=== PATIENT | male | born 1975 | race Hispanic/Latino ===

== ENCOUNTER 2018-04-27 18:14 | Inpatient (IN) | payer MEDICARE, OTHER ==
[~2018-04-27] VITALS: Ht 172.7 cm; Wt 88.9 kg
[2018-04-27] MEDS ORDERED: PANTOPRAZOLE 40 MG 10ML VIAL IV STA (18:32)
[2018-04-27] MEDS ORDERED: SODIUM CHLORIDE 0.9% 1000ML 1,000 ML IV ONE (19:00)
[2018-04-27 19:21] LABS: BASOPHILS # (AUTO) 0.1 (0.0-0.1); BASOPHILS % 0.9 % (0.0-1.0); EOSINOPHILS # (AUTO) 0.4 (0.0-0.4); EOSINOPHILS % 6.1 % (0.0-6.0); HEMATOCRIT 22.5 % (38.2-49.6); HEMOGLOBIN 7.7 g/dL (14.0-18.0); LYMPHOCYTES # (AUTO) 2.8 (1.0-3.2); LYMPHOCYTES % 40.4 % (18.0-39.1); MEAN CORPUSCULAR HEMOGLOBIN 32.8 pg (28-32); MEAN CORPUSCULAR HGB CONC 34.2 g/dL (31-35); MEAN CORPUSCULAR VOLUME 95.7 fL (81-99); MONOCYTES # (AUTO) 1.1 (0.2-0.8); MONOCYTES % 16.6 % (4.4-11.3); NEUTROPHILS # (AUTO) 2.5 (2.1-6.9); NEUTROPHILS % 35.7 % (38.7-80.0); PLATELET COUNT 137 x10e3/uL (140-360); RED BLOOD COUNT 2.35 x10e6/uL (4.3-5.7); RED CELL DISTRIBUTION WIDTH 20.7 % (11.7-14.4)
[2018-04-27 19:33] LABS: INR 1.59; PROTHROMBIN TIME 20.3 seconds (11.9-14.5)
[2018-04-27 19:34] LABS: PARTIAL THROMBOPLASTIN TIME 48.9 seconds (23.8-35.5)
[2018-04-27 19:41] LABS: CLARITY,URINE CLEAR (CLEAR); COLOR,URINE YELLOW (YELLOW)
[2018-04-27 19:42] LABS: BILIRUBIN,URINE NEGATIVE (NEGATIVE); KETONES,URINE NEGATIVE (NEGATIVE); LEUKOCYTE ESTERASE ,URINE NEGATIVE (NEGATIVE); NITRITE,URINE NEGATIVE (NEGATIVE); PROTEIN,URINE DIPSTICK NEGATIVE (NEGATIVE); URINE UROBILINOGEN 0.2 mg/dL (0.2 - 1)
[2018-04-27 19:44] LABS: ALANINE AMINOTRANSFERASE 15 IU/L (0-55); ALBUMIN 2.4 g/dL (3.5-5.0); ALBUMIN/GLOBULIN RATIO 0.4 (0.8-2.0); ALKALINE PHOSPHATASE 275 IU/L (40-150); ANION GAP 11.7 mmol/L (8-16); BLOOD UREA NITROGEN 9 mg/dL (7-26); BUN/CREATININE RATIO 14 (6-25); CALCIUM 7.4 mg/dL (8.4-10.2); CARBON DIOXIDE 20 mmol/L (22-29); CHLORIDE 109 mmol/L (98-107); CREATINE KINASE 60 IU/L (30-200); CREATININE, SERUM 0.65 mg/dL (0.72-1.25); EST GLOMERULAR FILTRATION RATE > 60 ML/MIN (60-); GLUCOSE 110 mg/dL (74-118); POTASSIUM 3.7 mmol/L (3.5-5.1); SODIUM 137 mmol/L (136-145)
[2018-04-27] MEDS ORDERED: SODIUM CHLORIDE 0.9% 250ML 250 ML IV ONE (19:45)
[2018-04-27 19:55] LABS: BACTERIA,URINE RARE /HPF
[2018-04-27] MEDS ORDERED: SODIUM CHLORIDE 0.9% 1000ML 1,000 ML IV SCH (19:56)
--- NOTE | 2018-04-27 20:14 | Diagnostic Imaging Report ---
A single frontal view of the chest. HISTORY: Vomiting blood, rib pain COMPARISON: None available. DISCUSSION: Portable technique, limits sensitivity of the exam. Soft tissue attenuation partially limits sensitivity of the exam. Overlying artifacts. Tubes/Lines: None Lungs and pleura: Low lung volumes result in bibasilar vascular crowding, accentuation of the pulmonary interstitial markings, central pulmonary vasculature, and the cardiac silhouette. Allowing for these limitations, the findings are as follows: No evidence of a consolidative pneumonia or pulmonary alveolar edema. No definite pleural effusion or pneumothorax is identified. Heart and mediastinum: The cardiomediastinal silhouette appears unremarkable. Bones: No acute osseous lesion is identified, given this limited exam. IMPRESSION: 1. Low lung volumes. 2. Otherwise, no acute radiographic abnormality. Signed by: Dr. Raymond Ware D.O., M.M.M. on 04/27/2018 8:10 PM
[2018-04-27] MEDS: PANTOPRAZOLE INJ 40 MG in SODIUM CHLORIDE 0.9% 50ML 50 ML IV SCH (21:15)
--- NOTE | 2018-04-27 21:19 | Diagnostic Imaging Report ---
EXAM: CT Abdomen and Pelvis WITH contrast INDICATION: July COMPARISON: None. TECHNIQUE: Abdomen and pelvis were scanned utilizing a multidetector helical scanner from the lung base to the pubic symphysis after administration of IV contrast. Coronal and sagittal reformations were obtained. Routine protocol was performed. Scan was performed when during portal venous phase. IV CONTRAST: 100 mL of Isovue-370 ORAL CONTRAST: Water RADIATION DOSE: Total DLP: 722.15 mGy*cm Estimated effective dose: (DLP x 0.015 x size factor) mSv COMPLICATIONS: None FINDINGS: LINES and TUBES: None. LOWER THORAX: There is bibasilar atelectasis. HEPATOBILIARY: The liver is diffuse hypodense compared to the spleen, consistent with diffuse hepatic diffuse hepatic steatosis. There is diffuse micronodularity and contour irregularity of the liver. No biliary ductal dilation. No focal mass visualized GALLBLADDER: No radio-opaque stones or sludge. Diffuse gallbladder wall edema present SPLEEN: Mild splenomegaly. PANCREAS: No focal masses or ductal dilatation. ADRENALS: No adrenal nodules KIDNEYS/URETERS: Kidneys enhance symmetrically. No hydronephrosis. No cystic or solid mass lesions. No stones. GI TRACT: There is mild edema of the small bowel proximally . The remaining of the small bowel and colon are unremarkable. Appendix is normal. PELVIC ORGANS/BLADDER: Large amount of stool in the rectum suggestive of constipation/impaction. The urinary bladder is unremarkable. Prostate and seminal vesicles appear normal LYMPH NODES: No lymphadenopathy. VESSELS: Multiple gastroesophageal and splenorenal shunts.. PERITONEUM / RETROPERITONEUM: There is moderate amount of free abdominal fluid and diffuse hazy fat stranding of the omentum. BONES: Mild degenerative changes at L4-5 and L5-S1 levels with mild diffuse disc bulge at L4-5. SOFT TISSUES: There is diffuse anarsarca. There is evidence of a large ventral umbilical hernia containing omental fat and prominent omental vessels. IMPRESSION: 1. Constellation of findings are compatible with micronodular cirrhosis with evidence of portal hypertension demonstrated by varices, anasarca, omental edema, ascites, etc. 2. No evidence of hepatic mass Signed by: Dr. Jaciel Shelby M.D. on 04/27/2018 9:16 PM
[2018-04-27 22:16] VITALS: BP 143/88
[2018-04-27] MEDS ORDERED: SUCRALFATE1 GM PO (22:19)
[2018-04-27] MEDS ORDERED: odefsey PO (22:19)
[2018-04-27] MEDS: OCTREOTIDE ACETATE 500 MCG in SODIUM CHLORIDE 0.9% 250ML 250 ML IV SCH (22:24)
[2018-04-27] MEDS ORDERED: SODIUM CHLORIDE 0.9% 50ML 50 ML ONE (22:39)
[2018-04-27] MEDS ORDERED: IOPAMIDOL 370 MG/ML 200 ML INFUS..BTL INJ ONE (22:39)
[2018-04-27] MEDS ORDERED: SODIUM CHLORIDE 0.9% 250ML 250 ML ONE (23:32)
[2018-04-28] VITALS (89 sets, daily range): BP systolic 92–167; BP diastolic 49–117
[2018-04-28] MEDS ORDERED: PANTOPRAZOL 40MG/SOD CHL 0.9% 50 ML IV ONE ×2 (01:14→06:19)
[2018-04-28] MEDS: PANTOPRAZOLE INJ 40 MG in SODIUM CHLORIDE 0.9% 50ML 50 ML IV SCH ×5 (01:37→20:03)
[2018-04-28] MEDS: FUROSEMIDE INJ 10 MG/ML 2 ML VIAL IV PRN ×2 (04:00→06:41)
[2018-04-28] MEDS: OCTREOTIDE ACETATE 500 MCG in SODIUM CHLORIDE 0.9% 250ML 250 ML IV SCH ×2 (06:40→15:28)
[2018-04-28] MEDS: ONDANSETRON HCL INJ 2 MG/ML VIAL IV PRN ×2 (06:41→13:42)
[2018-04-28] MEDS: SODIUM CHLORIDE 0.9% 1000ML 1,000 ML IV SCH ×3 (06:41→20:04)
[2018-04-28] MEDS: CHLORDIAZEPOXIDE HCL 25 MG CAP PO PRN ×2 (08:13→15:25)
[2018-04-28] MEDS: HYDROCODONE/APAP 5MG-325MG TAB PO PRN ×2 (08:13→13:43)
[2018-04-28 09:57] LABS: BASOPHILS # (AUTO) 0.1 (0.0-0.1); BASOPHILS % 1.1 % (0.0-1.0); EOSINOPHILS # (AUTO) 0.3 (0.0-0.4); EOSINOPHILS % 5.5 % (0.0-6.0); HEMATOCRIT 27.2 % (38.2-49.6); HEMOGLOBIN 9.5 g/dL (14.0-18.0); LYMPHOCYTES # (AUTO) 1.4 (1.0-3.2); LYMPHOCYTES % 26.9 % (18.0-39.1); MEAN CORPUSCULAR HEMOGLOBIN 32.1 pg (28-32); MEAN CORPUSCULAR HGB CONC 34.9 g/dL (31-35); MEAN CORPUSCULAR VOLUME 91.9 fL (81-99); MONOCYTES # (AUTO) 0.9 (0.2-0.8); MONOCYTES % 17.7 % (4.4-11.3); NEUTROPHILS # (AUTO) 2.6 (2.1-6.9); NEUTROPHILS % 48.4 % (38.7-80.0); PLATELET COUNT 112 x10e3/uL (140-360); RED BLOOD COUNT 2.96 x10e6/uL (4.3-5.7); RED CELL DISTRIBUTION WIDTH 20.4 % (11.7-14.4)
[2018-04-28] MEDS ORDERED: PANTOPRAZOLE 40 MG 10ML VIAL ONE ×2 (10:02→13:36)
[2018-04-28 10:16] LABS: ANION GAP 12.3 mmol/L (8-16); BLOOD UREA NITROGEN 5 mg/dL (7-26); BUN/CREATININE RATIO 7 (6-25); CARBON DIOXIDE 22 mmol/L (22-29); CHLORIDE 103 mmol/L (98-107); CREATININE, SERUM 0.72 mg/dL (0.72-1.25); EST GLOMERULAR FILTRATION RATE > 60 ML/MIN (60-); GLUCOSE 164 mg/dL (74-118); POTASSIUM 3.3 mmol/L (3.5-5.1); SODIUM 134 mmol/L (136-145)
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
[2018-04-28 16:18] LABS: HEMATOCRIT 27.2 % (38.2-49.6); HEMOGLOBIN 9.3 g/dL (14.0-18.0)
[2018-04-28] MEDS ORDERED: PHYTONADIONE 10 MG/ML AMP SQ ONE (18:45)
[2018-04-28] MEDS ORDERED: SODIUM CHLORIDE 0.9% 250ML 250 ML ONE (19:59)
--- NOTE | 2018-04-28 20:35 | Consultation ---
DATE OF CONSULTATION: April 28, 2018 HISTORY OF PRESENT ILLNESS: This is a 42-year-old, known to us from previous admissions, history of HIV, history of cirrhosis from previous history of alcohol use, presented to the hospital because apparently was found to have some blood in his mouth. The patient was found to have hemoglobin 7.7. On admission, also he had a CT scan which showed cirrhosis. He is receiving blood transfusions. OTHER MEDICAL PROBLEMS: Include history of cirrhosis of the liver, history of hepatitis, history of alcohol use. ALLERGIES: NONE. SOCIAL HISTORY: History of alcohol abuse. FAMILY HISTORY: Noncontributory. REVIEW OF SYSTEMS: At this point, denies any chest pain, denies any shortness of breath, denies any dysphagia, odynophagia. Denies any dysuria or hematuria or any kind of syncopal episode. PHYSICAL EXAMINATION GENERAL: The patient is awake, alert, appears to be stable, not in acute distress at this point. VITAL SIGNS: Afebrile, currently with stable vital signs. HEAD, EYES, EARS, NOSE, AND THROAT: Normocephalic. Sclerae anicteric. NECK: Supple. HEART: Regular. LUNGS: Clear. ABDOMEN: Soft. There is no distention at this point. It is nontender. EXTREMITIES: No clubbing or cyanosis. LAB VALUES: Significant for hemoglobin of 9.3, platelet count of 112,000. BUN of 5, creatinine of 0.7. Liver enzyme showed AST of 58, bilirubin 2.0. PT 20.3, INR 1.59, PTT of 48.9. IMPRESSION 1. Gastrointestinal bleed. 2. Liver cirrhosis. 3. Coagulopathy. PLAN AND RECOMMENDATIONS: We will give vitamin K as well as FFP. Start on a proton pump inhibitor. We will proceed with EGD for evaluation tomorrow and follow labs. Job#: [id number] ARDEN cc:GORAN MARCANO M.D.
[2018-04-29] VITALS (54 sets, daily range): BP systolic 121–162; BP diastolic 74–106
[2018-04-29 00:06] LABS: HEMATOCRIT 26.3 % (38.2-49.6); HEMOGLOBIN 8.8 g/dL (14.0-18.0)
[2018-04-29] MEDS ORDERED: PANTOPRAZOLE 40 MG 10ML VIAL ONE ×3 (01:23→15:14)
[2018-04-29] MEDS ORDERED: SODIUM CHLORIDE 0.9% 100 ML ONE (01:23)
[2018-04-29] MEDS ORDERED: SODIUM CHLORIDE 0.9% 250ML 250 ML ONE (01:35)
[2018-04-29] MEDS: PANTOPRAZOLE INJ 40 MG in SODIUM CHLORIDE 0.9% 50ML 50 ML IV SCH ×3 (01:48→13:56)
[2018-04-29] MEDS: OCTREOTIDE ACETATE 500 MCG in SODIUM CHLORIDE 0.9% 250ML 250 ML IV SCH ×3 (01:48→22:00)
[2018-04-29] MEDS: HYDROCODONE/APAP 5MG-325MG TAB PO PRN ×4 (01:49→23:40)
[2018-04-29 04:41] LABS: BASOPHILS % 0.5 % (0.0-1.0); EOSINOPHILS # (AUTO) 0.3 (0.0-0.4); EOSINOPHILS % 7.3 % (0.0-6.0); HEMATOCRIT 25.9 % (38.2-49.6); HEMOGLOBIN 8.9 g/dL (14.0-18.0); LYMPHOCYTES # (AUTO) 1.1 (1.0-3.2); LYMPHOCYTES % 28.1 % (18.0-39.1); MEAN CORPUSCULAR HEMOGLOBIN 31.6 pg (28-32); MEAN CORPUSCULAR HGB CONC 34.4 g/dL (31-35); MEAN CORPUSCULAR VOLUME 91.8 fL (81-99); MONOCYTES # (AUTO) 0.7 (0.2-0.8); MONOCYTES % 18.3 % (4.4-11.3); NEUTROPHILS # (AUTO) 1.8 (2.1-6.9); NEUTROPHILS % 45.5 % (38.7-80.0); PLATELET COUNT 97 x10e3/uL (140-360); RED BLOOD COUNT 2.82 x10e6/uL (4.3-5.7)
[2018-04-29 04:54] LABS: INR 1.48; PROTHROMBIN TIME 19.2 seconds (11.9-14.5)
[2018-04-29 05:01] LABS: ANION GAP 11.7 mmol/L (8-16); BLOOD UREA NITROGEN 7 mg/dL (7-26); BUN/CREATININE RATIO 11 (6-25); CARBON DIOXIDE 22 mmol/L (22-29); CHLORIDE 104 mmol/L (98-107); CREATININE, SERUM 0.65 mg/dL (0.72-1.25); EST GLOMERULAR FILTRATION RATE > 60 ML/MIN (60-); GLUCOSE 111 mg/dL (74-118); POTASSIUM 3.7 mmol/L (3.5-5.1); SODIUM 134 mmol/L (136-145)
[2018-04-29] MEDS: ONDANSETRON HCL INJ 2 MG/ML VIAL IV PRN ×2 (07:48→16:02)
[2018-04-29] MEDS: CHLORDIAZEPOXIDE HCL 25 MG CAP PO PRN (07:48)
[2018-04-29] MEDS ORDERED: ODEFSEY PO SCH (09:00)
[2018-04-29] MEDS ORDERED: THIAMINE HCL INJ 100 MG in SODIUM CHLORIDE 0.9% 50ML 50 ML IV NR ×2 (10:00→14:00)
[2018-04-29 10:17] LABS: HEMATOCRIT 27.8 % (38.2-49.6); HEMOGLOBIN 9.6 g/dL (14.0-18.0)
[2018-04-29] MEDS: PHYTONADIONE 10 MG/ML AMP SC SCH (13:56)
[2018-04-29] MEDS: SODIUM CHLORIDE 0.9% 1000ML 1,000 ML IV SCH ×2 (13:56→22:00)
[2018-04-29] MEDS: PANTOPRAZOL 40MG/SOD CHL 0.9% 50 ML IV SCH ×2 (15:49→22:00)
[2018-04-29] MEDS ORDERED: PROPOFOL IV EMULSION 10 MG/ML 20 ML VIAL ONE (16:53)
[2018-04-29] MEDS ORDERED: MIDAZOLAM HCL 2 MG/2 ML VIAL ONE (17:32)
[2018-04-29] MEDS ORDERED: FENTANYL CITRATE/PF 100MCG/2 ML INJ ONE (17:32)
[2018-04-29] MEDS: ODEFSEY PO SCH (17:34)
[2018-04-30] VITALS: BP 140/78
[2018-04-30] MEDS: PANTOPRAZOL 40MG/SOD CHL 0.9% 50 ML IV SCH ×4 (01:30→14:24)
[2018-04-30] MEDS: SODIUM CHLORIDE 0.9% 1000ML 1,000 ML IV SCH ×2 (02:00→10:24)
[2018-04-30 04:00] VITALS: BP 140/78
[2018-04-30 04:41] LABS: BASOPHILS % 0.6 % (0.0-1.0); EOSINOPHILS # (AUTO) 0.4 (0.0-0.4); EOSINOPHILS % 9.2 % (0.0-6.0); HEMATOCRIT 26.8 % (38.2-49.6); HEMOGLOBIN 9.2 g/dL (14.0-18.0); LYMPHOCYTES # (AUTO) 1.2 (1.0-3.2); LYMPHOCYTES % 25.7 % (18.0-39.1); MEAN CORPUSCULAR HEMOGLOBIN 31.9 pg (28-32); MEAN CORPUSCULAR HGB CONC 34.3 g/dL (31-35); MEAN CORPUSCULAR VOLUME 93.1 fL (81-99); MONOCYTES # (AUTO) 0.8 (0.2-0.8); MONOCYTES % 16.5 % (4.4-11.3); NEUTROPHILS # (AUTO) 2.3 (2.1-6.9); NEUTROPHILS % 47.6 % (38.7-80.0); PLATELET COUNT 112 x10e3/uL (140-360); RED BLOOD COUNT 2.88 x10e6/uL (4.3-5.7); RED CELL DISTRIBUTION WIDTH 19.7 % (11.7-14.4)
[2018-04-30 04:55] LABS: INR 1.58; PROTHROMBIN TIME 20.2 seconds (11.9-14.5)
[2018-04-30 05:02] LABS: ANION GAP 12.6 mmol/L (8-16); BLOOD UREA NITROGEN 7 mg/dL (7-26); BUN/CREATININE RATIO 10 (6-25); CALCIUM 8.1 mg/dL (8.4-10.2); CARBON DIOXIDE 20 mmol/L (22-29); CHLORIDE 105 mmol/L (98-107); CREATININE, SERUM 0.67 mg/dL (0.72-1.25); EST GLOMERULAR FILTRATION RATE > 60 ML/MIN (60-); GLUCOSE 85 mg/dL (74-118); POTASSIUM 3.6 mmol/L (3.5-5.1); SODIUM 134 mmol/L (136-145)
[2018-04-30 08:00] VITALS: BP 149/87
[2018-04-30] MEDS: ONDANSETRON HCL INJ 2 MG/ML VIAL IV PRN (08:09)
[2018-04-30] MEDS: PHYTONADIONE 10 MG/ML AMP SC SCH (08:49)
[2018-04-30] MEDS: THIAMINE HCL 100 MG TAB PO SCH (08:49)
[2018-04-30] MEDS: OCTREOTIDE ACETATE 500 MCG in SODIUM CHLORIDE 0.9% 250ML 250 ML IV SCH (09:58)
[2018-04-30 12:00] VITALS: BP 141/78
[2018-04-30] MEDS: HYDROCODONE/APAP 5MG-325MG TAB PO PRN (14:25)
[2018-04-30 16:00] VITALS: BP 153/81
[2018-04-30] MEDS: ODEFSEY PO SCH (17:59)
[2018-04-30 19:55] VITALS: BP 131/78
[2018-04-30] MEDS: SUCRALFATE 1 GM TAB PO SCH (20:21)
[2018-05-01] VITALS: BP 129/72
[2018-05-01 04:00] VITALS: BP 117/61
[2018-05-01] MEDS ORDERED: PANTOPRAZOLE SOD 40 MG TABEC PO SCH (07:30)
[2018-05-01] MEDS: SUCRALFATE 1 GM TAB PO SCH (08:07)
[2018-05-01] MEDS: HYDROCODONE/APAP 5MG-325MG TAB PO PRN (08:12)
[2018-05-01 08:14] VITALS: BP 126/71
[2018-05-01] MEDS ORDERED: PROTONIX40 MG PO (09:05)
[2018-05-01] MEDS: PHYTONADIONE 10 MG/ML AMP SC SCH (10:05)
[2018-05-01] MEDS: THIAMINE HCL 100 MG TAB PO SCH (10:05)
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
[2018-05-01] MEDS ORDERED: PANTOPRAZOLE SO40 MG PO (11:39)
[2018-05-01 12:07] VITALS: BP 136/78
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
== END 2018-05-01 12:17 | disposition home or self-care (01) | DRG 378 ==
LOC: ER 18:14 → ERHOLD 20:13 → ICU 22:00 → MED/SURG2 04-29 14:53
PROVIDERS: ADMIT Internal Medicine; ATTEND Internal Medicine
PROC: 30233N1 Transfusion of Nonautologous Red Blood Cells into Peripheral Vein, Percutaneous Approach (ICD-10-PCS; principal; 2018-04-27)
PROC: 30233L1 Transfusion of Nonautologous Fresh Plasma into Peripheral Vein, Percutaneous Approach (ICD-10-PCS; 2018-04-28)
PROC: 0DB78ZX Excision of Stomach, Pylorus, Via Natural or Artificial Opening Endoscopic, Diagnostic (ICD-10-PCS; 2018-04-29)
DX: K29.71 Gastritis, unspecified, with bleeding (principal); B20 Human immunodeficiency virus [HIV] disease; D68.9 Coagulation defect, unspecified; B19.10 Unspecified viral hepatitis B without hepatic coma; R16.1 Splenomegaly, not elsewhere classified; M51.37 Other intervertebral disc degeneration, lumbosacral region; K43.9 Ventral hernia without obstruction or gangrene; K74.60 Unspecified cirrhosis of liver; F10.20 Alcohol dependence, uncomplicated; B18.2 Chronic viral hepatitis C; K44.9 Diaphragmatic hernia without obstruction or gangrene
CPT/HCPCS: 36415; 36430; 43239; 71045; 71111; 74177; 80048; 80053; 80320; 81001; 82550; 82553; 84484; 85014; 85018; 85025; 85610; 85730; 86850; 86900; 86920; 88305; 88312; 93005; 96361; 96374; 99284; J1940; J2250; J2353; J2405; J3411; J3430; J7030; J7050; P9016; P9017; Q9967